=== PATIENT | male | born 1950 | race Two or more races ===

== ENCOUNTER 2023-11-11 06:24 | Day surgery (SDC) | payer OTHER ==
[2023-11-11] MEDS ORDERED: MIDAZOLAM HCL 2 MG/2 ML VIAL IV ONE (08:45)
[2023-11-11] MEDS ORDERED: DIPHENHYDRAMINE HCL 50 MG/ML VIAL 1ML IV ONE (08:45)
[2023-11-11] MEDS ORDERED: fentaNYL CITRATE 50 MCG/ML AMPUL IV PUSH ONE (08:45)
== END 2023-11-11 09:35 | disposition home or self-care (01) ==
LOC: AMB-ENDOS 06:24
PROVIDERS: ATTEND Colon & Rectal Surgery
DX: K63.5 Polyp of colon (principal); D12.2 Benign neoplasm of ascending colon; K57.30 Diverticulosis of large intestine without perforation or abscess without bleeding; K64.2 Third degree hemorrhoids; Z20.822 Contact with and (suspected) exposure to COVID-19